=== PATIENT | male | born 1975 | race Caucasian/White ===

== ENCOUNTER 2021-02-01 10:53 | Inpatient (IN) | payer OTHER ==
[~2021-02-01] VITALS: Ht 182.9 cm; Wt 61.4 kg
[~2021-02-01 10:53] MED LIST: CILOXAN 5 ML5 M1 OT; DAYPRO600 M1 PO; MOTRIN800 MG PO
[2021-02-01 11:03] VITALS: BP 145/107
[2021-02-01 11:52] LABS: ALBUMIN 2.9 gm/dl (3.1-4.5); ALKALINE PHOSPHATASE 72 U/L (45-117); BUN 14 mg/dl (7-24); CHLORIDE 85 mmol/L (98-107); LIPASE 71 U/L (73-393); POTASSIUM 3.9 mmol/L (3.5-5.1); SGOT/AST 28 IU/L (3-35); SGPT/ALT 21 U/L (12-78); TOTAL PROTEIN 7.1 gm/dL (6.4-8.2)
[2021-02-01 11:54] LABS: BASO % 0.3 % (0.0-1.0); HEMATOCRIT 44.7 % (42.0-52.0); LYMPH # 0.5 10*3/uL (1.3-4.4); LYMPH % 3.5 % (27.0-41.0); MEAN CELL VOLUME 84.2 fl (80.0-94.0); MEAN CORPUSCULAR HGB 29.9 pg (27.0-31.0); MEAN CORPUSCULAR HGB CONC 35.6 g/dl (33.0-37.0); MEAN PLATELET VOLUME 11.1 fl (9.6-12.3); MONO # 0.8 10*3/uL (0.1-1.0); MONO % 5.3 % (3.0-9.0); NEUT # 13.5 10*3/uL (2.3-7.9); NEUT % 89.9 % (47.0-73.0); PLATELET COUNT AUTOMATED 173 10*3/uL (130-400); RED BLOOD COUNT 5.31 10*6/uL (4.50-5.90); RED CELL DISTRI WIDTH 12.8 % (0-14.5)
[2021-02-01 11:55] LABS: SODIUM 118 mmol/L (136-145); TROPONIN I 0.088 ng/ml (<0.045)
[2021-02-01 12:07] LABS: BILIRUBIN Negative (Negative); BLOOD 2+ (Negative); CLARITY Clear (Clear); COLOR Yellow (Yellow); GLUCOSE Negative (Negative); KETONE 2+ (Negative); LEUKO ESTERASE Negative (Negative); NITRITE Negative (Negative); PH 6.5 (4.5-8.0)
[2021-02-01 12:19] LABS: BACTERIA 2+
[2021-02-01 13:41] VITALS: BP 124/86
[2021-02-01 14:39] VITALS: BP 122/70
[2021-02-01 16:00] VITALS: BP 126/92
[2021-02-01 20:00] VITALS: BP 109/81
[2021-02-01 21:35] LABS: URINE CHLORIDE, RANDOM < 10 mmol/L
[2021-02-01 21:36] LABS: BILIRUBIN Negative (Negative); BLOOD 3+ (Negative); CLARITY Clear (Clear); COLOR Dark Yellow (Yellow); GLUCOSE Trace (Negative); KETONE Trace (Negative); LEUKO ESTERASE Negative (Negative); NITRITE Negative (Negative); PH 5.5 (4.5-8.0); SPECIFIC GRAVITY 1.025 (1.001-1.030)
[2021-02-01 22:00] LABS: BACTERIA 1+
[2021-02-01 22:01] LABS: MUCOUS TRACE
[2021-02-01 23:02] LABS: BUN 17 mg/dl (7-24); CHLORIDE 86 mmol/L (98-107); CREATININE 0.89 mg/dL (0.70-1.30); POTASSIUM 4.1 mmol/L (3.5-5.1); SODIUM 120 mmol/L (136-145)
[2021-02-02] VITALS: BP 126/82
[2021-02-02 02:01] LABS: BUN 16 mg/dl (7-24); CHLORIDE 88 mmol/L (98-107); CREATININE 0.73 mg/dL (0.70-1.30); POTASSIUM 3.7 mmol/L (3.5-5.1); SODIUM 120 mmol/L (136-145)
[2021-02-02 06:27] LABS: CHLORIDE 86 mmol/L (98-107); POTASSIUM 3.7 mmol/L (3.5-5.1); SODIUM 120 mmol/L (136-145)
[2021-02-02 06:29] LABS: HEMATOCRIT 44.1 % (42.0-52.0); MEAN CELL VOLUME 83.4 fl (80.0-94.0); MEAN CORPUSCULAR HGB 29.9 pg (27.0-31.0); MEAN CORPUSCULAR HGB CONC 35.8 g/dl (33.0-37.0); MEAN PLATELET VOLUME 12.1 fl (9.6-12.3); PLATELET COUNT AUTOMATED 142 10*3/uL (130-400); RED BLOOD COUNT 5.29 10*6/uL (4.50-5.90); RED CELL DISTRI WIDTH 12.6 % (0-14.5); WHITE BLOOD COUNT 11.7 10*3/uL (4.8-10.8)
[2021-02-02 06:31] LABS: CHLORIDE 87 mmol/L (98-107); POTASSIUM 3.7 mmol/L (3.5-5.1); SODIUM 120 mmol/L (136-145)
[2021-02-02 06:32] LABS: BUN 16 mg/dl (7-24); CREATININE 0.83 mg/dL (0.70-1.30)
[2021-02-02 06:47] LABS: ALBUMIN 2.5 gm/dl (3.1-4.5); ALKALINE PHOSPHATASE 64 U/L (45-117); BUN 16 mg/dl (7-24); CHOLESTEROL 105 mg/dL (<200); CREATININE 0.83 mg/dL (0.70-1.30); FREE T4 1.15 ng/dl (0.76-1.46); LDL CHOLESTEROL 45 mg/dL (9-159); SGOT/AST 40 IU/L (3-35); SGPT/ALT 22 U/L (12-78); TOTAL PROTEIN 6.5 gm/dL (6.4-8.2); TRIGLYCERIDES 99 mg/dl (<150)
[2021-02-02 06:54] LABS: VITAMIN D, 25-HYDROXY 58.5 ng/mL (30-100)
[2021-02-02 07:30] LABS: PLATELET SUFFICIENCY NORMAL (NORMAL); TOTAL CELLS COUNTED 100 #CELLS
[2021-02-02 08:00] VITALS: BP 143/96
[2021-02-02 10:25] LABS: BUN 16 mg/dl (7-24); CHLORIDE 87 mmol/L (98-107); CREATININE 0.84 mg/dL (0.70-1.30); POTASSIUM 3.6 mmol/L (3.5-5.1); SODIUM 122 mmol/L (136-145)
[2021-02-02 14:48] LABS: BUN 16 mg/dl (7-24); CHLORIDE 87 mmol/L (98-107); CREATININE 0.83 mg/dL (0.70-1.30); POTASSIUM 3.5 mmol/L (3.5-5.1); SODIUM 122 mmol/L (136-145)
[2021-02-02 16:00] VITALS: BP 143/96; BP 152/99
[2021-02-02 17:06] LABS: URINE CHLORIDE, RANDOM < 10 mmol/L
[2021-02-02 18:18] LABS: BUN 16 mg/dl (7-24); CHLORIDE 88 mmol/L (98-107); CREATININE 0.83 mg/dL (0.70-1.30); POTASSIUM 3.5 mmol/L (3.5-5.1); SODIUM 122 mmol/L (136-145)
[2021-02-02 20:00] VITALS: BP 122/87
[2021-02-02 23:04] LABS: BUN 15 mg/dl (7-24); CHLORIDE 89 mmol/L (98-107); CREATININE 0.66 mg/dL (0.70-1.30); POTASSIUM 3.4 mmol/L (3.5-5.1); SODIUM 125 mmol/L (136-145)
[2021-02-03] VITALS: BP 125/92
[2021-02-03 02:16] LABS: BUN 13 mg/dl (7-24); CHLORIDE 91 mmol/L (98-107); CREATININE 0.55 mg/dL (0.70-1.30); POTASSIUM 3.3 mmol/L (3.5-5.1); SODIUM 124 mmol/L (136-145)
[2021-02-03 06:08] LABS: BASO % 0.3 % (0.0-1.0); HEMATOCRIT 39.1 % (42.0-52.0); LYMPH # 0.6 10*3/uL (1.3-4.4); LYMPH % 8.8 % (27.0-41.0); MEAN CELL VOLUME 84.4 fl (80.0-94.0); MEAN CORPUSCULAR HGB CONC 35.5 g/dl (33.0-37.0); MEAN PLATELET VOLUME 12.6 fl (9.6-12.3); MONO # 0.5 10*3/uL (0.1-1.0); MONO % 6.8 % (3.0-9.0); NEUT # 5.8 10*3/uL (2.3-7.9); NEUT % 82.4 % (47.0-73.0); PLATELET COUNT AUTOMATED 111 10*3/uL (130-400); RED BLOOD COUNT 4.63 10*6/uL (4.50-5.90); RED CELL DISTRI WIDTH 12.9 % (0-14.5); WHITE BLOOD COUNT 7.1 10*3/uL (4.8-10.8)
[2021-02-03 06:20] LABS: BUN 13 mg/dl (7-24); CHLORIDE 90 mmol/L (98-107); CREATININE 0.63 mg/dL (0.70-1.30); POTASSIUM 3.4 mmol/L (3.5-5.1); SODIUM 124 mmol/L (136-145)
[2021-02-03 08:00] VITALS: BP 133/84
[2021-02-03 09:57] LABS: BUN 13 mg/dl (7-24); CHLORIDE 93 mmol/L (98-107); CREATININE 0.66 mg/dL (0.70-1.30); SODIUM 125 mmol/L (136-145)
[2021-02-03 12:00] VITALS: BP 114/73
[2021-02-03 15:43] LABS: BUN 12 mg/dl (7-24); CHLORIDE 94 mmol/L (98-107); CREATININE 0.68 mg/dL (0.70-1.30); POTASSIUM 3.2 mmol/L (3.5-5.1); SODIUM 127 mmol/L (136-145)
[2021-02-03 16:00] VITALS: BP 141/82
[2021-02-03 20:00] VITALS: BP 122/78
[2021-02-03 22:42] LABS: BUN 14 mg/dl (7-24); CHLORIDE 97 mmol/L (98-107); POTASSIUM 3.6 mmol/L (3.5-5.1); SODIUM 129 mmol/L (136-145)
[2021-02-04] VITALS (7 sets, daily range): BP systolic 107–134; BP diastolic 71–84
[2021-02-04 06:07] LABS: BUN 12 mg/dl (7-24); CHLORIDE 99 mmol/L (98-107); CREATININE 0.42 mg/dL (0.70-1.30); POTASSIUM 3.9 mmol/L (3.5-5.1); SODIUM 130 mmol/L (136-145)
[2021-02-04 06:31] LABS: BASO % 0.6 % (0.0-1.0); EOS % 0.8 % (1.0-4.0); HEMATOCRIT 39.8 % (42.0-52.0); LYMPH # 0.6 10*3/uL (1.3-4.4); LYMPH % 12.6 % (27.0-41.0); MEAN CORPUSCULAR HGB 29.8 pg (27.0-31.0); MEAN CORPUSCULAR HGB CONC 34.7 g/dl (33.0-37.0); MEAN PLATELET VOLUME 13.4 fl (9.6-12.3); MONO # 0.6 10*3/uL (0.1-1.0); MONO % 11.7 % (3.0-9.0); NEUT # 3.5 10*3/uL (2.3-7.9); NEUT % 73.3 % (47.0-73.0); PLATELET COUNT AUTOMATED 117 10*3/uL (130-400); RED BLOOD COUNT 4.63 10*6/uL (4.50-5.90); RED CELL DISTRI WIDTH 13.2 % (0-14.5); WHITE BLOOD COUNT 4.8 10*3/uL (4.8-10.8)
[2021-02-04 09:51] LABS: BUN 11 mg/dl (7-24); CHLORIDE 98 mmol/L (98-107); CREATININE 0.54 mg/dL (0.70-1.30); POTASSIUM 3.3 mmol/L (3.5-5.1); SODIUM 130 mmol/L (136-145)
[2021-02-04 16:54] LABS: BUN 11 mg/dl (7-24); CHLORIDE 100 mmol/L (98-107); CREATININE 0.47 mg/dL (0.70-1.30); POTASSIUM 4.1 mmol/L (3.5-5.1); SODIUM 130 mmol/L (136-145)
[2021-02-04 23:38] LABS: BUN 10 mg/dl (7-24); CHLORIDE 103 mmol/L (98-107); CREATININE 0.52 mg/dL (0.70-1.30); SODIUM 132 mmol/L (136-145)
[2021-02-05] VITALS: BP 127/93
[2021-02-05 06:10] LABS: HEMATOCRIT 38.1 % (42.0-52.0); MEAN CELL VOLUME 87.4 fl (80.0-94.0); MEAN CORPUSCULAR HGB CONC 34.4 g/dl (33.0-37.0); PLATELET COUNT AUTOMATED 136 10*3/uL (130-400); RED BLOOD COUNT 4.36 10*6/uL (4.50-5.90); RED CELL DISTRI WIDTH 13.4 % (0-14.5); WHITE BLOOD COUNT 5.1 10*3/uL (4.8-10.8)
[2021-02-05 06:20] LABS: BUN 8 mg/dl (7-24); CHLORIDE 100 mmol/L (98-107); CREATININE 0.53 mg/dL (0.70-1.30); SODIUM 131 mmol/L (136-145)
[2021-02-05 06:24] LABS: POTASSIUM 3.8 mmol/L (3.5-5.1)
[2021-02-05 07:06] LABS: ATYPICAL LYMPHS 1 % (0-0); PLATELET SUFFICIENCY NORMAL (NORMAL); TOTAL CELLS COUNTED 100 #CELLS
[2021-02-05 07:07] LABS: ACANTHOCYTES FEW; BURR CELLS MODERATE
[2021-02-05 08:00] VITALS: BP 117/85
[2021-02-05 12:00] VITALS: BP 116/79
[2021-02-05] MEDS ORDERED: LEVOFLOXACIN750 M2 PO ×2 (15:17)
[2021-02-05] MEDS ORDERED: SODIUM CHLORIDE1 GM PO (15:19)
[2021-02-05 16:00] VITALS: BP 135/54
[2021-02-05 20:00] VITALS: BP 131/86
[2021-02-06] VITALS: BP 120/71
[2021-02-06 06:08] LABS: BUN 7 mg/dl (7-24); CHLORIDE 104 mmol/L (98-107); CREATININE 0.55 mg/dL (0.70-1.30); POTASSIUM 4.2 mmol/L (3.5-5.1); SODIUM 134 mmol/L (136-145)
[2021-02-06 08:00] VITALS: BP 118/87
[2021-02-06 11:14] LABS: ACT PARTIAL THROMBO TIME 28.9 SECONDS (20.0-32.1)
[2021-02-06 12:00] VITALS: BP 118/81
[2021-02-06 16:00] VITALS: BP 115/78
[2021-02-06 20:00] VITALS: BP 107/72
[2021-02-07] VITALS (10 sets, daily range): BP systolic 97–148; BP diastolic 55–95
[2021-02-07 06:49] LABS: BUN 9 mg/dl (7-24); CHLORIDE 100 mmol/L (98-107); POTASSIUM 4.4 mmol/L (3.5-5.1); SODIUM 134 mmol/L (136-145)
[2021-02-07 06:51] LABS: CREATININE 0.56 mg/dL (0.70-1.30)
[2021-02-08] VITALS: BP 119/78
[2021-02-08 06:25] LABS: BUN 12 mg/dl (7-24); CHLORIDE 101 mmol/L (98-107); CREATININE 0.67 mg/dL (0.70-1.30); POTASSIUM 4.5 mmol/L (3.5-5.1); SODIUM 135 mmol/L (136-145)
[2021-02-08 08:00] VITALS: BP 104/66
[2021-02-08 10:08] LABS: ACID FAST SPEC PROCESSING Concentration (.)
[2021-02-08 12:00] VITALS: BP 110/80
[2021-02-08] MEDS ORDERED: AUGMENTIN 875-875 MG PO (13:46)
[2021-02-08] MEDS ORDERED: VIBRAMYCIN100 MG PO (13:46)
== END 2021-02-08 16:00 | disposition home or self-care (01) | DRG 720 ==
LOC: ED 10:53 → 4E 13:09 → EDHOLD 13:09 → 4E 14:25
PROVIDERS: Emergency Medicine; Hospitalist; Internal Medicine; Internal Medicine Critical Care Medicine; Internal Medicine Nephrology; Student in an Organized Health Care Education/Training Program; ADMIT Family Medicine; ATTEND Family Medicine
PROC: 4A02XM4 Measurement of Cardiac Total Activity, External Approach (ICD-10-PCS; principal; 2021-02-02)
PROC: 3E073KZ Introduction of Other Diagnostic Substance into Coronary Artery, Percutaneous Approach (ICD-10-PCS; 2021-02-02)
PROC: 0BC98ZZ Extirpation of Matter from Lingula Bronchus, Via Natural or Artificial Opening Endoscopic (ICD-10-PCS; 2021-02-07)
PROC: 0BC48ZZ Extirpation of Matter from Right Upper Lobe Bronchus, Via Natural or Artificial Opening Endoscopic (ICD-10-PCS; 2021-02-07)
PROC: 0BC88ZZ Extirpation of Matter from Left Upper Lobe Bronchus, Via Natural or Artificial Opening Endoscopic (ICD-10-PCS; 2021-02-07)
PROC: 0BC58ZZ Extirpation of Matter from Right Middle Lobe Bronchus, Via Natural or Artificial Opening Endoscopic (ICD-10-PCS; 2021-02-07)
PROC: 0BC38ZZ Extirpation of Matter from Right Main Bronchus, Via Natural or Artificial Opening Endoscopic (ICD-10-PCS; 2021-02-07)
PROC: 0BC78ZZ Extirpation of Matter from Left Main Bronchus, Via Natural or Artificial Opening Endoscopic (ICD-10-PCS; 2021-02-07)
PROC: 0BC68ZZ Extirpation of Matter from Right Lower Lobe Bronchus, Via Natural or Artificial Opening Endoscopic (ICD-10-PCS; 2021-02-07)
PROC: 0BCB8ZZ Extirpation of Matter from Left Lower Lobe Bronchus, Via Natural or Artificial Opening Endoscopic (ICD-10-PCS; 2021-02-07)
PROC: 0BC28ZZ Extirpation of Matter from Carina, Via Natural or Artificial Opening Endoscopic (ICD-10-PCS; 2021-02-07)
DX: A41.9 Sepsis, unspecified organism (principal); E44.0 Moderate protein-calorie malnutrition; N39.0 Urinary tract infection, site not specified; E22.2 Syndrome of inappropriate secretion of antidiuretic hormone; M54.16 Radiculopathy, lumbar region; E87.8 Other disorders of electrolyte and fluid balance, not elsewhere classified; E86.0 Dehydration; E87.6 Hypokalemia; F32.9 Major depressive disorder, single episode, unspecified; F10.239 Alcohol dependence with withdrawal, unspecified; M54.5 Low back pain; F17.210 Nicotine dependence, cigarettes, uncomplicated; T17.590A Other foreign object in bronchus causing asphyxiation, initial encounter; X58.XXXA Exposure to other specified factors, initial encounter; Z68.1 Body mass index [BMI] 19.9 or less, adult; Z82.3 Family history of stroke; Z82.49 Family history of ischemic heart disease and other diseases of the circulatory system; Z71.6 Tobacco abuse counseling; Y93.89 Activity, other specified; Y92.89 Other specified places as the place of occurrence of the external cause; Y99.8 Other external cause status; J15.6 Pneumonia due to other Gram-negative bacteria

== ENCOUNTER → 2021-02-16 | Outpatient (CLI) | payer OTHER ==
[~2021-02-16] MED LIST changes: +AUGMENTIN 875-875 MG PO; +LEVOFLOXACIN750 M2 PO; +SODIUM CHLORIDE1 GM PO; +VIBRAMYCIN100 MG PO
[2021-02-16 10:32] LABS: BUN 15 mg/dl (7-24); CHLORIDE 102 mmol/L (98-107); CREATININE 0.65 mg/dL (0.70-1.30); SODIUM 136 mmol/L (136-145)
== END | disposition home or self-care (01) ==
LOC: LAB 09:59
PROVIDERS: ATTEND Internal Medicine Nephrology
DX: E87.1 Hypo-osmolality and hyponatremia (principal)

== ENCOUNTER → 2021-03-23 | Outpatient (CLI) | payer OTHER ==
[2021-03-23 11:57] LABS: URINE CHLORIDE, RANDOM 44 mmol/L
[2021-03-23 12:05] LABS: BUN 8 mg/dl (7-24); CHLORIDE 96 mmol/L (98-107); CREATININE 0.74 mg/dL (0.70-1.30); POTASSIUM 3.6 mmol/L (3.5-5.1); SODIUM 131 mmol/L (136-145)
== END | disposition home or self-care (01) ==
LOC: LAB 11:13
PROVIDERS: ATTEND Internal Medicine Nephrology
DX: E87.1 Hypo-osmolality and hyponatremia (principal)

== ENCOUNTER → 2022-03-21 | Outpatient (CLI) | payer OTHER ==
[2022-03-21 11:01] LABS: BASO # 0.2 10*3/uL (0.0-0.1); BASO % 2.4 % (0.0-1.0); EOS # 0.9 10*3/uL (0.0-0.4); EOS % 12.6 % (1.0-4.0); HEMATOCRIT 51.3 % (42.0-52.0); LYMPH # 1.4 10*3/uL (1.3-4.4); LYMPH % 19.6 % (27.0-41.0); MEAN CELL VOLUME 87.4 fl (80.0-94.0); MEAN CORPUSCULAR HGB 29.1 pg (27.0-31.0); MEAN CORPUSCULAR HGB CONC 33.3 g/dl (33.0-37.0); MEAN PLATELET VOLUME 11.1 fl (9.6-12.3); MONO # 0.6 10*3/uL (0.1-1.0); MONO % 8.9 % (3.0-9.0); NEUT # 3.9 10*3/uL (2.3-7.9); NEUT % 56.2 % (47.0-73.0); PLATELET COUNT AUTOMATED 198 10*3/uL (130-400); RED BLOOD COUNT 5.87 10*6/uL (4.50-5.90); RED CELL DISTRI WIDTH 13.7 % (0-14.5)
== END ==
LOC: LAB 10:41
DX: C10.9 Malignant neoplasm of oropharynx, unspecified (principal); C06.9 Malignant neoplasm of mouth, unspecified; R11.2 Nausea with vomiting, unspecified; J44.9 Chronic obstructive pulmonary disease, unspecified; R91.8 Other nonspecific abnormal finding of lung field